=== PATIENT | male | born 1965 | race African-American/Black ===

== ENCOUNTER 2016-12-29 23:14 | Emergency (ER) | payer OTHER ==
[~2016-12-29] VITALS: Ht 170.2 cm; Wt 86.2 kg
[2016-12-29] MEDS ORDERED: GABAPENTIN100 MG ORAL (23:28)
[2016-12-30] VITALS: BP 127/80
[2016-12-30 00:36] LABS: BASOPHILS % (AUTO) 1.8 % (0.0-2.0); EOSINOPHILS % (AUTO) 7.4 % (0.0-3.0); LYMPHOCYTES % (AUTO) 40.1 % (20.0-45.0); MEAN CORPUSCULAR HEMOGLOBIN 30.6 PG (27.0-31.0); MEAN CORPUSCULAR HGB CONC 34.1 G/DL (32.0-36.0); MEAN CORPUSCULAR VOLUME 90 FL (80-99); MEAN PLATELET VOLUME 7.1 FL (6.5-10.1); NEUTROPHILS % (AUTO) 44.7 % (45.0-75.0); PLATELET COUNT 299 K/UL (150-450); RED BLOOD COUNT 4.57 M/UL (4.70-6.10); RED CELL DISTRIBUTION WIDTH 12.9 % (11.6-14.8); WHITE BLOOD COUNT 9.7 K/UL (4.8-10.8)
[2016-12-30 00:48] LABS: ANION GAP 16 (5-15); CALCIUM 8.8 mg/dL (8.6-10.2); CARBON DIOXIDE 26 mEQ/L (20-30); CHLORIDE 99 mEQ/L (98-107); CREATININE 0.9 mg/dL (0.7-1.2); GLOMERULAR FILTRATION RATE > 60 mL/min (>60); HEMOLYSIS 83; POTASSIUM 4.5 mEQ/L (3.4-4.9); SODIUM 141 mEQ/L (135-145)
[2016-12-30] MEDS ORDERED: Ketorolac 30mg Inj IV ONE (01:45)
[2016-12-30] MEDS ORDERED: ANUSOL-HC25 MG RECTAL (01:55)
--- NOTE | 2016-12-30 01:55 | Emergency Room Report ---
History of Present Illness General Chief Complaint: General Complaint Source: Patient Present Illness HPI Is a 51-year-old male with a history of foot drop. He presents with rectal bleeding the last 2 days. Also with rectal pain. Bleeding is bright red blood. No fever chills but no nausea no vomiting. Pain is 7/10. Worse with bowel movement. Has not take narcotic. Denies any other complaint. Said he had a colonoscopy bout one to 2 years ago and was normal. Allergies: Coded Allergies: No Known Allergies (Unverified , 12/29/16) Patient History Past Medical History: see triage record, old chart reviewed Past Surgical History: other Pertinent Family History: none Social History: Denies: smoking Immunizations: other Reviewed Nursing Documentation: PMH: Agreed, PSxH: Agreed Nursing Documentation-PMH Hx Neurological Problems: Yes - NERVE STIMULATOR DUE TO NERVE PROBLEM Review of Systems Eye: Denies: blurred vision, eye pain ENT: Denies: ear pain, nose congestion, throat swelling Respiratory: Denies: cough, shortness of breath Cardiovascular: Denies: chest pain, palpitations Gastrointestinal: Denies: abdominal pain, diarrhea, nausea, vomiting Musculoskeletal: Denies: back pain, joint pain Skin: Denies: rash Neurological: Denies: headache, numbness Endocrine: Denies: increased thirst, increased urine Hematologic/Lymphatic: Denies: easy bruising All Other Systems: negative except mentioned in HPI Physical Exam Vital Signs Date Time Temp Pulse Resp B/P Pulse Ox O2 Delivery O2 Flow Rate FiO2 12/29/16 23:23 98.1 79 16 129/87 97 Room Air vitals normal Sp02 EP Interpretation: reviewed, normal General Appearance: well appearing, no apparent distress, alert Head: normocephalic, atraumatic Eyes: bilateral eye EOMI, bilateral eye PERRL ENT: hearing grossly normal, normal pharynx Neck: full range of motion, supple, no meningismus Respiratory: chest non-tender, lungs clear, normal breath sounds Cardiovascular #1: regular rate, rhythm, no murmur Gastrointestinal: normal bowel sounds, non tender, no mass, no organomegaly, no bruit, non-distended Rectal: other - Small fissure at 7:00 position. No external hemorrhoid. Musculoskeletal: back normal, gait/station normal, normal range of motion Neurologic: alert, oriented x3 Psychiatric: mood/affect normal Skin: warm/dry Medical Decision Making Diagnostic Impression: Primary Impression: Rectal bleeding Additional Impression: Anal fissure ER Course Issue with rectal bleeding. Hemoglobin stable. This is most likely internal hemorrhoid bleeding. We'll discharge home. No evidence of acute abdomen. No evidence of infection. Lab Results Impression labs normal Last Vital Signs Date Time Temp Pulse Resp B/P Pulse Ox O2 Delivery O2 Flow Rate FiO2 12/30/16 00:00 78 18 127/80 100 Room Air 12/29/16 23:23 98.1 Status: improved Disposition: HOME, SELF-CARE Condition: Stable Scripts Hydrocortisone Acetate* (ANUSOL-HC*) 25 Mg Supp.rect 1 SUPP RECTAL TWICE A DAY, #15 SUPP Prov: FLAVIO JETER M.D. 12/30/16 Referrals: [facility],REFERR[facility] (PCP) Additional Instructions: Followup your DrMira in 7 days. You may need a referral to see a GI DrMira for colonoscopy/sigmoidoscopy. Return if worse. FLAVIO JETER M.D. December 30, 2016 01:55
[2016-12-30 02:10] VITALS: BP 116/76
== END 2016-12-30 02:10 | disposition home or self-care (01) ==
LOC: EMR 23:55
DX: K62.5 Hemorrhage of anus and rectum (principal); K60.2 Anal fissure, unspecified
CPT/HCPCS: 36415; 80048; 85025; 96374; 99284; J1885

== ENCOUNTER 2017-06-12 22:41 | Emergency (ER) | payer OTHER ==
[~2017-06-12] VITALS: Ht 170.2 cm; Wt 86.2 kg
[~2017-06-12 22:41] MED LIST: ANUSOL-HC25 MG RECTAL; GABAPENTIN100 MG ORAL
[2017-06-12 23:00] VITALS: BP 130/89
[2017-06-12] MEDS ORDERED: Bicillin LA 2,400,000 units IM ONE (23:30)
[2017-06-12 23:44] VITALS: BP 123/81
--- NOTE | 2017-06-13 07:17 | Emergency Room Report ---
History of Present Illness General Chief Complaint: General Complaint Source: Patient Present Illness HPI Patient 52-year-old male who presented after having recent exposure to syphilis. Patient states that he had had unprotected sex approximately 6 days ago with a woman who informed him that he she had been tested positive for syphilis. He denies any dysuria or abdominal discharge. He denies any fever or weight loss or genital lesions. He requested treatment for syphilis. Allergies: Coded Allergies: No Known Allergies (Unverified , 06/12/17) Patient History Past Medical History: see triage record Reviewed Nursing Documentation: PMH: Agreed, PSxH: Agreed Nursing Documentation-PMH Past Medical History: No History, Except For Hx Neurological Problems: Yes - NERVE STIMULATOR DUE TO NERVE PROBLEM Review of Systems All Other Systems: negative except mentioned in HPI Physical Exam Vital Signs Date Time Temp Pulse Resp B/P (MAP) Pulse Ox O2 Delivery O2 Flow Rate FiO2 06/12/17 22:56 97.7 69 16 130/89 96 Room Air General Appearance: well appearing, no apparent distress, alert, GCS 15 Head: normocephalic, atraumatic ENT: hearing grossly normal, normal voice Neck: full range of motion, supple Respiratory: no respiratory distress, speaking full sentences Cardiovascular #1: normal peripheral pulses, regular rate, rhythm Musculoskeletal: no calf tenderness Neurologic: normal gait Psychiatric: mood/affect normal Skin: no rash Medical Decision Making Diagnostic Impression: Primary Impression: STD exposure ER Course The patient presented for STD exposure. The patient was given empiric treatment with IM penicillin. The patient is advised the patient STI testing. The patient is advised to follow up with primary care doctor in 2-3 days. Patient is advised to return if any worsening condition or if any changes in status that are concerning. Last Vital Signs Date Time Temp Pulse Resp B/P (MAP) Pulse Ox O2 Delivery O2 Flow Rate FiO2 06/12/17 23:44 76 20 123/81 96 Room Air 06/12/17 23:00 97.7 Status: improved Disposition: HOME, SELF-CARE Condition: Stable Referrals: [facility]ERR[facility] (PCP) Patient Instructions: Sexually Transmitted Disease, [id number] Amadeo Morfin Jun 13, 2017 07:17
== END 2017-06-12 23:44 | disposition home or self-care (01) ==
LOC: EMR 23:20
DX: Z20.2 Contact with and (suspected) exposure to infections with a predominantly sexual mode of transmission (principal)
CPT/HCPCS: 96372; 99283